=== PATIENT | female | born 1935 | race Caucasian/White ===

== ENCOUNTER 2016-09-04 07:25 | Inpatient (IN) | payer OTHER ==
[2016-08-03 11:04] VITALS: BMI 36.0
--- NOTE | 2016-08-03 11:39 | PAT Medication Instructions ---
Service Date Aug 03, 2016. Current Home Medication List Albuterol Sulfate (Proair Respiclick), 2 PUFFS INH BID PRN for RN Alprazolam (Xanax), 0.5 MG PO DAILY PRN for RN Aspirin (Aspirin Ec), 81 MG PO QAM Hydrochlorothiazide (Hctz), 25 MG PO DAILY PRN for SWELLING Levothyroxine Sodium (Levothyroxine Sodium), 1 TAB PO QAM Lisinopril (Zestril), 40 MG PO BID Magnesium Oxide (Mag-Ox), 400 MG PO BID Metformin Hcl (Glucophage), 500 MG PO BID Montelukast Sodium (Montelukast Sodium), 1 TAB PO HS Omeprazole (Prilosec), 40 MG PO QAM Tramadol (Ultram), 50 MG PO Q6H PRN for RN [Maurizio Reds], 1 TAB PO QAM [Verapamil], 360 MG PO QPM [Vitamin D2], 50,000 UNITS PO MONTHLY Medication Instructions For Your Scheduled Surgery -Continue as directed: [Vitamin D2], 50,000 UNITS PO MONTHLY - Hold the following medications 2 weeks prior to surgery: [Maurizio Reds], 1 TAB PO QAM - Hold the following medications 48 hours prior to surgery: Metformin Hcl (Glucophage), 500 MG PO BID - Hold the following medications 24 hours prior to surgery: Lisinopril (Zestril), 40 MG PO BID - Hold the following medications the morning of surgery: Hydrochlorothiazide (Hctz), 25 MG PO DAILY PRN for SWELLING Magnesium Oxide (Mag-Ox), 400 MG PO BID - Take the following medications the morning of surgery with a sip of water OTHERWISE NOTHING TO EAT OR DRINK AFTER MIDNIGHT: Omeprazole (Prilosec), 40 MG PO QAM Aspirin (Aspirin Ec), 81 MG PO QAM Albuterol Sulfate (Proair Respiclick), 2 PUFFS INH BID PRN (use if needed; BRING TO HOSPITAL) Alprazolam (Xanax), 0.5 MG PO DAILY PRN Levothyroxine Sodium (Levothyroxine Sodium), 1 TAB PO QAM Tramadol (Ultram), 50 MG PO Q6H PRN (may take up to 4 hours prior to surgery if needed) - Take the following medications as scheduled the night before surgery: Albuterol Sulfate (Proair Respiclick), 2 PUFFS INH BID PRN for RN Alprazolam (Xanax), 0.5 MG PO DAILY PRN [Verapamil], 360 MG PO QPM Magnesium Oxide (Mag-Ox), 400 MG PO BID Montelukast Sodium (Montelukast Sodium), 1 TAB PO HS Tramadol (Ultram), 50 MG PO Q6H PRN If you have any questions please call us at [phone] (Chasidy Hernandez PA-C ) or [phone] or [phone]
[2016-08-03 12:01] LABS: COMPLETE YES; EOS % 1.7 %; HEMATOCRIT 35.2 % (37-47); IG% 0.8 %; LYMPH % 19.8 %; LYMPH ABS # 1.17 K/uL (1.2-3.4); MEAN CELL VOLUME 75.1 fL (80-100); MEAN CORPUSCULAR HEMOGLOBIN 24.1 pg (25-34); MEAN CORPUSCULAR HGB CONC 32.1 g/dl (32-36); MEAN PLATELET VOLUME 9.8 fL (7.4-10.4); MONO % 8.1 %; NEUT % 69.6 %; PLATELET COUNT 124 K/uL (130-400); RED BLOOD COUNT 4.69 M/uL (4.2-5.4)
[2016-08-03 12:16] LABS: PROTHROMBIN TIME (PATIENT) 11.2 SECONDS (9.0-12.0)
[2016-08-03 12:22] LABS: ESTIMATED AVERAGE GLUCOSE 128 mg/dl; HA1C FLAG Normal (Normal)
[2016-08-03 12:25] LABS: BUN/CREATININE RATIO 19.2 (10-20); CALCIUM 9.1 mg/dl (8.5-10.1); CREATININE 1.1 mg/dl (0.60-1.20)
[2016-08-03 12:28] LABS: URINE APPEARANCE CLEAR (CLEAR); URINE BILIRUBIN NEG (NEG); URINE COLOR YELLOW; URINE EPITHELIAL CELL AUTO >30 /lpf (0-5); URINE NITRITE NEG (NEG); URINE SPECIFIC GRAVITY 1.024 (1.000-1.030); UROBILINOGEN NEG (NEG); ZZUR CULT IF INDIC CLEAN CATCH NO
--- NOTE | 2016-08-03 12:29 | DIAGNOSTIC IMAGING REPORT ---
CHEST 2 VIEWS ROUTINE HISTORY: Preop. COMPARISON: None. FINDINGS: The lungs are clear. Cardiac silhouette is normal in size. No pleural effusions. No pneumothorax. Old, healed left-sided rib fractures. IMPRESSION: No acute process. Electronically signed by: Raffi Hatch M.D. 08/03/2016 12:27 PM
[2016-08-03 12:33] LABS: MANUAL MICROSCOPIC REQUIRED? NO; REVIEW REQ? NO
--- NOTE | 2016-08-31 09:05 | HISTORY & PHYSICAL EXAMINATION ---
DATE OF ADMISSION: 09/04/2016 CHIEF COMPLAINT: Left knee pain. HISTORY OF PRESENT ILLNESS: Sridevi is an 81-year-old female with a 20-year history of pain in her left knee. She rates her pain a 10/10. She has pain with her daily activities. She has limited standing and walking tolerance range. Pain is worse with weightbearing. She has had injections and tramadol without relief. She has failed conservative treatment and is scheduled for left knee replacement. PAST MEDICAL HISTORY: Hypertension, diabetes, asthma, hypercholesterolemia, sleep apnea and diabetes. She denies heart disease or DVT. PAST SURGICAL HISTORY: Hysterectomy, appendectomy, surgical hernia repair, , bowel resection, laminectomy. SOCIAL HISTORY: The patient denies alcohol or tobacco use. She lives in a single story home. She is and retired. FAMILY HISTORY: Negative for DVT. MEDICATIONS: Lisinopril 40 mg b.i.d., levothyroxine 200 mcg daily, magnesium oxide 400 mg, omeprazole 40 mg, metformin 500 mg b.i.d., alprazolam 0.5 mg daily, montelukast 10 mg daily, tramadol 50 mg q. 6 hours, verapamil 360 mg, hydrochlorothiazide 25 mg p.r.n., Maurizio Red, vitamin D3 2,000 international units daily, Mihai aspirin 81 mg. ALLERGIES: STATINS. REVIEW OF SYSTEMS: See HPI. Ten other systems reviewed, all negative. PHYSICAL EXAMINATION: VITAL SIGNS: Height 5 foot 2 inches, weight 200 pounds, BMI 37. GENERAL: This is a well-developed, well-nourished female who is alert and oriented x3. Mood and affect are appropriate. HEENT: Normocephalic, atraumatic. Mucous membranes are moist and intact. NECK: Supple without lymphadenopathy. HEART: Regular rate and rhythm without murmurs, rubs or gallops. LUNGS: Clear to auscultation without wheezes or rhonchi. ABDOMEN: Soft and nontender. She does have and abdominal mass in the right lower quadrant, which is nontender. So far, her workup has been negative. EXTREMITIES: No ecchymosis, redness or warmth. She has varus deformity. Range of motion is from 0-115 degrees with no laxity. She is neurovascularly intact with +5/5 strength. X-RAY EXAMINATION: AP and lateral views show joint space narrowing and osteophyte formation. IMPRESSION: Degenerative joint disease left knee. PLAN: The patient will be admitted for a left total knee arthroplasty. We will plan on aspirin for DVT prophylaxis. The patient has [facility] insurance and will likely use home physical therapy.
[2016-09-04] VITALS (8 sets, daily range): BP systolic 130–152; BP diastolic 66–84; PULSE 75–103; TEMP 36.4–37.3; O2SAT 93–98; Ht 157.5 cm; Wt 90.0 kg
[~2016-09-04] VITALS: Ht 157.5 cm; Wt 90.0 kg
[2016-09-04] MEDS: TRANEXAMIC ACID INJ 1,000 MG in SODIUM CHLORIDE 0.9% 100ML 100 ML IV SCH ×2 (06:30→08:33)
[~2016-09-04 07:25] MED LIST: ACETAMINOPHEN 500 MG TAB PO SCH; ALBU18002 INH; ALPR-411 PO; ASPI81TA28 PO; BUPIVACAINE 0.25% 30 ML VIAL ONE; BUPIVACAINE 0.5 % 5 MG/1 ML PF 10ML VIAL ONE; CEFAZOLIN 2000 MG/60 ML D5W 60 ML IV SCH; CeleBREX 200 MG CAP PO SCH; FAMOTIDINE 20 MG TAB PO SCH; GABAPENTIN 300 MG CAP PO SCH; GLC/500 PO; HYDR25TA4 PO; LACTATED RINGER'S 1000ML 1,000 ML IV SCH; LACTATED RINGER'S 1000ML IV SCH; LEVO200T6 PO; LISI40TA PO; MAGN400T6 PO; MEGA REDS PO; METOCLOPRAMIDE HCL 10 MG TAB PO SCH; MONT1TAB5 PO; OMEP40CA PO; OXYCODONE HCL 10 MG TABCR (OXYCONTIN) PO SCH; POLYMYXIN B SULFATE 100,000 UNITS in NSS 100ML IR SCH; ROPIVACAINE 5MG/ML 30 ML 150 MG, BUPIVACAINE/EPINEPHR 0.5% MPF 30 ML, KETOROLAC TROMETH... INFIL SCH; TRAM-10 PO; VANCOMYCIN INJ 400 MG in NSS 100ML IR SCH; VERAPAMIL PO; VITAMIN D2 PO
--- NOTE | 2016-09-04 07:55 | History & Physical Bridge Note ---
H&P Re-Evaluation Bridge Note: I have examined the patient, reviewed the History & Physical and in the interval since the performance of the History & Physical I have noted the following changes of clinical significance: No changes noted
[2016-09-04] MEDS ORDERED: FENTANYL CITRATE INJ 50 MCG/1 ML 2 ML VIAL IV PRN (08:00)
[2016-09-04] MEDS ORDERED: ONDANSETRON INJ 2 MG/ML 2 ML VIAL IV PRN ×2 (08:00→10:30)
[2016-09-04] MEDS ORDERED: EpHEDrine SULFATE INJ 50 MG/ML AMP IV PRN (08:00)
[2016-09-04] MEDS ORDERED: ATROPINE SULFATE 0.1 MG/ML 5ML SYR IV PRN (08:00)
[2016-09-04] MEDS ORDERED: ORTHO JOINT ANESTHETIC ONE (08:10)
[2016-09-04] MEDS ORDERED: FENTANYL CITRATE INJ 50 MCG/1 ML 2 ML VIAL ONE (08:11)
[2016-09-04] MEDS ORDERED: MIDAZOLAM HCL 1 MG/ML 2ML VIAL ONE (08:12)
[2016-09-04] MEDS ORDERED: LIDOCAINE HCL 2% 2 ML VIAL (20MG/ML) ONE (09:41)
[2016-09-04] MEDS ORDERED: PROPOFOL IV EMULSION 10 MG/ML 20 ML VIAL IV ONE ×2 (09:41→10:36)
--- NOTE | 2016-09-04 10:27 | [facility] Post Operative Brief Note ---
Immediate Operative Summary Operative Date Sep 04, 2016. Pre-Operative Diagnosis Degenerative joint disease of left knee Post-Operative Diagnosis Same as preoperative diagnosis Procedure(s) Performed Left total knee arthroplasty Surgeon Dr Luiz Victor Lead Game Designer Surgeon(s) Raymundo Molina PA-C Estimated Blood Loss 50ML Findings DJD Specimens Left Knee bone and tissue Complication(s) None Disposition Recovery Room / PACU
[2016-09-04] MEDS ORDERED: BUPIVACAINE/EPINEPHRINE 0.25% 1:200,000 30 ML VIAL INJ ONE (10:28)
[2016-09-04] MEDS ORDERED: POVIDONE-IODINE OP SOLN 30 ML BTL TOP ONE (10:28)
[2016-09-04] MEDS ORDERED: BACITRACIN 50000 UNIT VIAL IR ONE (10:28)
[2016-09-04] MEDS ORDERED: KETOROLAC TROMETHAMINE 15 MG/ML VIAL IV. PRN (10:30)
[2016-09-04] MEDS ORDERED: BISACODYL 10 MG SUPP PR PRN (10:30)
[2016-09-04] MEDS ORDERED: SOD PHOSPHATE/SOD BIPHOSPHATE ENEMA 132 ML BTL PR PRN (10:30)
[2016-09-04] MEDS ORDERED: ALBUTEROL HFA INHALER 8.5 GM INH PRN (10:30)
[2016-09-04] MEDS ORDERED: HYDROCHLOROTHIAZIDE 25 MG TAB PO PRN (10:30)
[2016-09-04] MEDS ORDERED: ALPRAZOLAM 0.5 MG TAB PO PRN (10:30)
[2016-09-04] MEDS ORDERED: OXYCODONE HCL IR 5 MG TAB (IMMEDIATE RELEASE) PO PRN (10:30)
[2016-09-04] MEDS ORDERED: MoRPHine SULFATE 2 MG/ML CARP IV PRN (10:30)
[2016-09-04] MEDS ORDERED: MAGNESIUM HYDROXIDE SUSP 30 ML UDC PO PRN (10:30)
[2016-09-04] MEDS ORDERED: ZOLPIDEM TARTRATE 5 MG TAB PO PRN (10:30)
[2016-09-04] MEDS ORDERED: TRAMADOL HCL 50 MG TAB PO PRN (10:30)
[2016-09-04] MEDS ORDERED: METOCLOPRAMIDE HCL INJ 5 MG/ML 2 ML VIAL IV PRN (10:30)
[2016-09-04] MEDS ORDERED: DiphenhydrAMINE HCL 50 MG/ML VIAL IV PRN (10:30)
[2016-09-04] MEDS ORDERED: ALUMINUM/MAGNESIUM/SIMETH (MAALOX MAX) 30 ML UDC PO PRN (10:30)
--- NOTE | 2016-09-04 11:48 | Pharmacy Progress Note ---
Glycemic Control Intl Consult Date of Service Sep 04, 2016. Scope Glycemic Pharmacist consulted by Dr Victor on 09/04/16 for glycemic control and to write orders per [facility] inpatient glycemic control protocol Objective Weight (Kilograms): 90.00 Accuchecks BSG (last 24hrs): Test 09/04/16 07:53 09/04/16 11:14 Bedside Glucose 145 mg/dl (70-90) 134 mg/dl (70-90) Recent Pertinent Medications Outpatient Anti-diabetic Regimen: * Metformin 500 mg po BID * A1c = 6.1 % on 08/03/16 Risk Factors for Insulin Resistance: * Infection: Cefazolin pre- and post-op * Recent Surgery: L TKA 09/04, POD 0 * Diet: T2DM Assessment & Plan ASSESSMENT: * ADA & AACE recommend a goal blood sugar range 140-180 mg/dl for the majority of critically ill & non-critically ill patients. However, more stringent targets may be selected in individual cases. * OK to have lower goal range * 81 yo F with T2DM admitted for L TKA 09/04/16 * Patient with good outpatient control of BSG's based on A1c * No steroids administered. Will not give basal insulin at this time. May consider if BSG's trend up significantly. * Will start with slightly looser than weight-based correction factor and carb ratio 2nd unknown insulin sensitivity and lower HbA1c PLAN FOR INPATIENT GLYCEMIC CONTROL: * Hold outpatient oral diabetes medications * No basal insulin for now * Correctional Insulin with NOVOLOG per scale ACHS or Q6hrs while NPO * Goal Range: Low 120 mg/dL - High 150 mg/dL * Correction Factor: 30 mg/dL/unit * Nutritional / Prandial insulin per carb ratio of 1 unit per 10 grams CHO consumed * Please note that the plan above was derived based on current level of insulin resistance and hospital stress. These recommendations are appropriate for inpatient admission only. Plan of care upon discharge will need to be reassessed to avoid potential outpatient hypo/hyperglycemia. Thank you.
[2016-09-04] MEDS ORDERED: PHARMACY GLYCEMIC MGMT CONSULT PRN (11:50)
--- NOTE | 2016-09-04 11:55 | Anesthesiology Progress Note ---
Anesthesia Post Op Note Date & Time Sep 04, 2016 at 11:54 Vital Signs Pain Intensity: 0 Vital Signs Past 12 Hours Date Time Temp Pulse Resp B/P Pulse Ox O2 Delivery O2 Flow Rate FiO2 09/04/16 11:45 36.5 82 16 138/69 95 Nasal Cannula 2 09/04/16 11:35 81 16 113/77 95 Nasal Cannula 2 09/04/16 11:25 85 16 141/61 97 Nasal Cannula 2 09/04/16 11:16 83 16 137/62 96 Mask 10 09/04/16 11:09 37.0 86 16 141/68 98 Mask 10 09/04/16 07:52 36.4 103 18 145/84 98 Room Air Notes Mental Status: alert / awake / arousable, participated in evaluation Pt Amnestic to Procedure: Yes Nausea / Vomiting: adequately controlled Pain: adequately controlled Airway Patency, RR, SpO2: stable & adequate BP & HR: stable & adequate Hydration State: stable & adequate Neuraxial Anesthesia: was administered, sensory block is resolving Anesthetic Complications: no major complications apparent
--- NOTE | 2016-09-04 11:59 | DIAGNOSTIC IMAGING REPORT ---
LEFT KNEE 1 OR 2 VIEWS ROUTINE CLINICAL HISTORY: Degenerative arthritis COMPARISON: None. DISCUSSION: There are postsurgical changes of a total left knee arthroplasty and patellar resurfacing. The femoral and tibial components appear well seated. There is an overlying surgical drain. There is air in soft tissues consistent with history of recent surgery. IMPRESSION: Postsurgical changes of a total left knee arthroplasty. Electronically signed by: Trever Jacques M.D. 09/04/2016 11:57 AM Dictated Date/Time: 09/04/2016 11:56 AM
[2016-09-04] MEDS: SODIUM CHLORIDE 0.9% 1000ML 1,000 ML IV SCH ×2 (12:39→20:44)
[2016-09-04] MEDS: ACETAMINOPHEN 500 MG TAB PO SCH ×2 (14:13→22:17)
[2016-09-04] MEDS ORDERED: TRANEXAMIC ACID INJ 1,000 MG in SODIUM CHLORIDE 0.9% 100ML 100 ML IV SCH (17:00)
--- NOTE | 2016-09-04 18:00 | OPERATIVE REPORT ---
DATE OF OPERATION: 09/04/2016 PREOPERATIVE DIAGNOSIS: Degenerative arthritis, left knee. POSTOPERATIVE DIAGNOSIS: Same. PROCEDURE: Left total knee with patient matched implant. SURGEON: Dr. Victor. REFUND SPECIALIST: SAVAGE Villar. ANESTHESIA: Spinal. BLOOD LOSS: 50 mL. REPLACEMENT FLUIDS: 1400 mL crystalloid. DRAINS: Hemovac x2. CULTURES: None. COMPLICATIONS: None. COMPONENTS USED: B[employer] Nephew Jourmullen Knee System: Femur size 5, tibia size 3 x 9, patella size 35. NOTE: Raymundo Molina was present and assisted throughout due to the complicated nature of this case. He helped with preparation and set up, first assisted throughout, and personally closed the capsule, subcutaneous and skin layers and applied the postoperative dressing. DESCRIPTION OF PROCEDURE: Following satisfactory spinal, the patient was supine. A tourniquet was placed but not inflated. The lower extremity was prepared with ChloraPrep and draped sterilely. Following a surgical time-out, a midline incision was made with a trivector approach. The knee showed grade 4 changes most marked in the medial and patellofemoral compartments. The cruciate ligaments were excised. The patient matched femoral block was applied. Femoral distal rotation and resection were set and completed. The 4-in-1 block was used to finish preparation of the femur. The patient matched tibial block was applied. Tibial resection was completed. The patella was freehand cut. Soft tissue balancing was completed and a trial reduction showed good tensioning stability on the collateral ligaments, stable range of motion, and the patella tracked well. The trial components were removed. The capsule was prepared with the orthopedic cocktail and after irrigation, the components were cemented using Simplex G cement. A Betadine soak was performed. When the cement had hardened, the Betadine was irrigated. Two drains were placed. The arthrotomy was closed with a running suture of 0 V-Loc and reinforced with #1 Vicryl. The subcutaneous tissues with 2-0 Vicryl and the skin with a running subcuticular stitch of 3-0 V-Loc. Dermabond and dry dressing were applied. The patient was returned to her bed in stable condition. I attest to the content of the Intraoperative Record and any orders documented therein. Any exceptio ns are noted below.
[2016-09-04] MEDS: CEFAZOLIN IV 2,000 MG in DEXTROSE 5% 50ML 50 ML IV SCH (18:14)
[2016-09-04] MEDS: INSULIN ASPART 100 UNITS/ML 3 ML PEN SC SCH ×2 (18:21→20:48)
[2016-09-04] MEDS: OXYCODONE HCL 10 MG TABCR (OXYCONTIN) PO SCH (20:44)
[2016-09-04] MEDS: MAGNESIUM OXIDE 400 MG TAB PO SCH (20:44)
[2016-09-04] MEDS: ASPIRIN 81 MG ECTAB PO SCH (20:44)
[2016-09-04] MEDS: LISINOPRIL 40 MG TAB PO SCH (20:45)
[2016-09-04] MEDS ORDERED: MONTELUKAST SOD 10 MG TAB PO SCH (21:00)
[2016-09-04] MEDS ORDERED: VERAPAMIL HCL 180 MG TABCR PO SCH (21:00)
[2016-09-04] MEDS ORDERED: SENNA 8.6 MG TAB PO SCH (21:00)
[2016-09-05] MEDS: CEFAZOLIN IV 2,000 MG in DEXTROSE 5% 50ML 50 ML IV SCH (01:37)
[2016-09-05] MEDS: ACETAMINOPHEN 500 MG TAB PO SCH ×2 (05:32→13:40)
[2016-09-05] MEDS: SODIUM CHLORIDE 0.9% 1000ML 1,000 ML IV SCH (05:36)
[2016-09-05 06:00] LABS: HEMATOCRIT 28.9 % (37-47); MEAN CELL VOLUME 76.3 fL (80-100); MEAN CORPUSCULAR HEMOGLOBIN 24.5 pg (25-34); MEAN CORPUSCULAR HGB CONC 32.2 g/dl (32-36); MEAN PLATELET VOLUME 11.3 fL (7.4-10.4); PLATELET COUNT 116 K/uL (130-400); RED BLOOD COUNT 3.79 M/uL (4.2-5.4); WHITE BLOOD COUNT 5.67 K/uL (4.8-10.8)
[2016-09-05] MEDS ORDERED: LEVOTHYROXINE 200 MCG TAB PO SCH (06:00)
[2016-09-05 06:35] LABS: BUN/CREATININE RATIO 21.3 (10-20); CALCIUM 8.1 mg/dl (8.5-10.1); CREATININE 1.2 mg/dl (0.60-1.20); POTASSIUM 4.2 mmol/L (3.5-5.1)
[2016-09-05 07:19] VITALS: BP 122/77; PULSE 74; TEMP 36.4; O2SAT 95
--- NOTE | 2016-09-05 08:08 | Anesthesiology Progress Note ---
Anesthesia Post Op Note Date & Time Sep 05, 2016 at 08:07 Vital Signs Vital Signs Past 12 Hours Date Time Temp Pulse Resp B/P Pulse Ox O2 Delivery O2 Flow Rate FiO2 09/05/16 08:00 Room Air 09/05/16 07:19 36.4 74 16 122/77 95 Room Air 09/04/16 23:45 Room Air 09/04/16 23:16 36.6 76 20 147/78 95 Room Air Notes Mental Status: alert / awake / arousable, participated in evaluation Pt Amnestic to Procedure: Yes Nausea / Vomiting: adequately controlled Pain: adequately controlled Airway Patency, RR, SpO2: stable & adequate BP & HR: stable & adequate Hydration State: stable & adequate Neuraxial Anesthesia: was administered, sensory block resolved Anesthetic Complications: no major complications apparent
--- NOTE | 2016-09-05 08:22 | Orthopedic Progress Note ---
Orthopedic Progress Note Date of Service Sep 05, 2016. Subjective Post OP Day: 1 Reports: feeling well, Denies: SOB, calf pain, chest pain, light headedness, nausea / vomiting Objective calves soft nontender, N/V intact, dressing C/D/I, A&O x3, toes mobile, hemovac drainage (280/80CC SHIFT) Date Time Temp Pulse Resp B/P Pulse Ox O2 Delivery O2 Flow Rate FiO2 09/05/16 08:00 Room Air 09/05/16 07:19 36.4 74 16 122/77 95 Room Air 09/04/16 23:45 Room Air 09/04/16 23:16 36.6 76 20 147/78 95 Room Air 09/04/16 19:33 36.6 78 18 135/75 95 Room Air 09/04/16 15:15 Room Air 09/04/16 15:00 36.6 80 16 130/79 93 Room Air 09/04/16 13:59 36.5 81 18 130/80 96 Nasal Cannula 2.0 09/04/16 13:00 75 16 146/82 98 Nasal Cannula 2.0 09/04/16 12:45 Room Air 09/04/16 12:30 36.8 79 16 152/76 98 Nasal Cannula 2.0 09/04/16 12:00 Nasal Cannula 2.0 09/04/16 12:00 95 Nasal Cannula 09/04/16 12:00 37.3 83 14 143/66 95 Nasal Cannula 2.0 09/04/16 11:45 36.5 82 16 138/69 95 Nasal Cannula 2 09/04/16 11:35 81 16 113/77 95 Nasal Cannula 2 09/04/16 11:25 85 16 141/61 97 Nasal Cannula 2 09/04/16 11:16 83 16 137/62 96 Mask 10 09/04/16 11:09 37.0 86 16 141/68 98 Mask 10 Laboratory Results 24 Hours: Test 09/05/16 05:22 Hematocrit 28.9 % Hemoglobin 9.3 g/dL Assessment & Plan Assessment: POD#1 SP LEFT TKA Inhouse Planning Pain Management: Celebrex, Oxycontin, PO Tylenol, Oxy IR DVT Prophylaxis: TEDs, SCDs, ASA Discharge Planning Discharge Planning: home with home health ([facility] LAT[facility] TODAY WITH ADVANTAGE)
[2016-09-05] MEDS: MAGNESIUM OXIDE 400 MG TAB PO SCH (08:34)
[2016-09-05] MEDS: ASPIRIN 81 MG ECTAB PO SCH (08:34)
[2016-09-05] MEDS: OXYCODONE HCL 10 MG TABCR (OXYCONTIN) PO SCH (08:35)
[2016-09-05] MEDS: LISINOPRIL 40 MG TAB PO SCH (08:36)
[2016-09-05] MEDS ORDERED: PANTOprazole SOD 40 MG TAB PO SCH (09:00)
[2016-09-05] MEDS ORDERED: MULTIVITAMIN TAB PO SCH (09:00)
[2016-09-05] MEDS: INSULIN ASPART 100 UNITS/ML 3 ML PEN SC SCH ×2 (09:09→13:03)
[2016-09-05 11:18] VITALS: BP 158/83; PULSE 73; TEMP 36.5; O2SAT 97
--- NOTE | 2016-09-05 11:53 | Discharge Instructions ---
Discharge Instructions Admission Reason for Admission: Left Knee Degenerative Arthritis Discharge Discharge Diagnosis / Problem: sp left TKA Discharge Goals Goal(s): Decrease discomfort, Improve function, Increase independence Activity Recommendations Activity Limitations: per Instructions/Follow-up section . Instructions / Follow-Up Instructions / Follow-Up ACTIVITY RECOMMENDATIONS: SELF CARE INSTRUCTIONS AFTER TOTAL KNEE REPLACEMENT A. You may need to continue a physical therapy program after discharge from the hospital. There are several options available to you. Your doctor will assist you in selecting the best one for you. 1. An out-patient facility 2 to 3 times a week for therapy or home therapy. 2. Continue working on all exercises taught to you in the hospital. Your goals should be to increase bending of your knee to 90 degrees and beyond and to fully straighten your knee. B. You may progress at your own pace from walking with a walker or crutches to a cane; then to no assistive devices. C. Make walking a part of your daily routine. Be up as much as comfortable with rest periods throughout the day. Rest with leg elevation is very important. Use the ice wrap frequently for the first 3-4 weeks. D. There are no restrictions on activities. You may ride in a car, shop, participate in ship rigger apprentice and all social activities. E. Wear the long elastic stockings (SUSAN hose) 20 hours a day for 2 weeks after surgery. They can be removed several times a day for laundering and for a bath. F. You may shower, no tub baths until cleared by your doctor. SPECIAL CARE INSTRUCTIONS: VERY IMPORTANT TO READ AND REVIEW A. There are a few signs you need to watch for after you are home. Call [facility] if you notice any of the followin. Increased severe knee pain. Some pain is expected especially when you exercise. 2. Increased swelling in your leg or knee; pain or swelling of the calf muscle in either lower leg. 3. Any fluid drainage from the incision. 4. Shortness of breath or chest pain. B. Please call [facility] at if you have any concerns or questions about your operation or recovery. The doctor or his nurse will return your call promptly. C. You must take antibiotics before dental work, bladder, bowel or other surgery. Your doctor will provide you with a permanent care to carry describing this precaution. IMPORTANT: * REMEMBER TO TAKE ASPIRIN, 81 MG, TWICE DAILY FOR 4 WEEKS UNLESS OTHERWISE DIRECTED. THIS IS YOUR BLOOD THINNER. * HIGH RISK PATIENTS MAY BE PRESCRIBED A STRONGER BLOOD THINNER. THIS WILL BE PROVIDED AT DISCHARGE. * CALL IF INCREASED PAIN, REDNESS, DRAINAGE OR FEVER GREATER THAT 101. * WEAR SUSAN HOSE 20 HOURS PER DAY FOR 2 WEEKS. DERMABOND Prineo- This is a mesh tape dressing that is covered with glue. It should remain in place until the incision is properly healed, usually 10-14 days. This dressing is designed to naturally slough off. You may trim the excess mesh tape as it peels off. Incision may be briefly wet in a shower. Dry immediately by blotting with a clean, dry towel. Do not bath or swim until instructed by your doctor. Do not scratch, rub, or pick at the dressing. Do not apply any topical ointments or lotions until dressing is completely removed and/or instructed by your doctor. There may be a small piece of suture material at one end of your incision. Do not pull or trim this. If it is bothersome or catching on clothing, you may cover it with a band-aid. FOLLOW UP VISIT: If appointment is not already scheduled: Please call [facility] to make a follow-up appointment for 2 weeks after your surgery at . Current Hospital Diet Patient's current hospital diet: Diabetes Type 2 Diet Discharge Diet Recommended Diet: Regular Diet Procedures Procedures Performed: Left total knee arthroplasty Pending Studies Studies pending at discharge: no Laboratory Results Hemoglobin A1c Test 08/03/16 11:43 Range/Units Estimated Average Glucose 128 mg/dl Hemoglobin A1c 6.1 H 4.5-5.6 % Medical Emergencies . Who to Call and When: Medical Emergencies: If at any time you feel your situation is an emergency, please call 911 immediately. . Non-Emergent Contact Non-Emergency issues call your: Primary Care Provider . "Provider Documentation" section prepared by Yesika Michel. VTE Core Measure Inpt VTE Proph given/why not?: Other Anticoagulation, T.E.D. Stockings, SCD's
[2016-09-05] MEDS ORDERED: ACET-1138 PO (11:57)
[2016-09-05] MEDS ORDERED: MORP-157 PO (11:57)
[2016-09-05] MEDS ORDERED: ONDA8TAB6 PO (11:57)
[2016-09-05] MEDS ORDERED: ASPI81TA28 PO (11:57)
[2016-09-05] MEDS ORDERED: RXC5 PO (11:57)
[2016-09-05] MEDS ORDERED: CLB200 PO (11:57)
[2016-09-05] MEDS ORDERED: CeleBREX 200 MG CAP PO SCH (12:00)
[2016-09-05 12:12] VITALS: BP 158/83; PULSE 73; TEMP 36.5; O2SAT 97
--- NOTE | 2016-09-05 13:38 | Pharmacy Progress Note ---
Glycemic: Assessment & Plan Date of Service Sep 05, 2016. Assessment & Plan Assessment * BSG's ranging 96-150 mg/dL over the last 24 hours * BSG of 96 mg/dL at lunch today slightly too low - will eliminate carb coverage * OK to decrease goal range as patient will only receive insulin if BSG's are elevated * May restart metformin tomorrow Plan * Correctional Insulin: Novolog Correction per scale ACHS Decrease Goal Range: Low 100 mg/dL - High 140 mg/dL Correction Factor: 30 mg/dL/unit * Prandial insulin: Eliminate carb ratio * Oral agents: Continue to hold metformin for now - may resume 09/06 * Please note that the plan above was derived based on current level of insulin resistance and hospital stress. These recommendations are appropriate for inpatient admission only. Plan of care upon discharge will need to be reassessed to avoid potential outpatient hypo/hyperglycemia.
--- NOTE | 2016-09-11 16:17 | DISCHARGE SUMMARY ---
DISCHARGE DIAGNOSIS: Degenerative joint disease left knee. SECONDARY DIAGNOSES: Hypertension, diabetes mellitus, asthma, hypercholesterolemia, sleep apnea. CONSULTS: None. COMPLICATIONS: None. PROCEDURES: Left total knee arthroplasty performed by Dr. Jose Manuel Victor on 09/04/2016. BRIEF HISTORY: As dictated in history and physical. HOSPITAL SUMMARY: The patient was admitted on the above date and had the above-noted surgery performed, which he tolerated well. On the first postoperative day, the patient was feeling well and had no complaints. Calves were soft and nontender, neurovascularly intact. Dressings clean, dry and intact. Toes were mobile. Pain was controlled and vital signs were stable and she was afebrile. Hemoglobin was 9.3 and she was started on physical therapy protocol and continued on DVT prophylaxis and pain management. She progressed well with her physical therapy, continued to remain stable and it was felt she could be discharged to home on 09/05/2016. For further review, please see chart. LAB AND X-RAY DATA: As per chart. DISCHARGE INSTRUCTIONS: The patient was discharged to home in satisfactory condition on 09/05/2016. DIET: Diabetic. ACTIVITY: Follow TKA instruction sheets and special care instructions as noted. Follow up with Dr. Jose Manuel Victor in 2 weeks. The patient to call for appointment if one has not been made for you. DISCHARGE MEDICATIONS: Acetaminophen 1000 mg p.o. q. 8 hours, Celebrex 200 mg p.o. daily, morphine sulfate 15 mg p.o. q. 12 hours, Zofran 8 mg p.o. q. 8 hours p.r.n., oxycodone 5-10 mg p.o. q. 4 hours p.r.n., aspirin 81 mg p.o. b.i.d., after 30 days resume once daily dosing. Resume home meds as listed.
== END 2016-09-05 13:53 | disposition home health service (06) | DRG 470 ==
LOC: ENRESERVTM → ENRESERVDT → C.ACU 07:25 → C.3E 08:22
PROVIDERS: ADMIT Orthopaedic Surgery; ATTEND Orthopaedic Surgery
PROC: 0SRD0J9 Replacement of Left Knee Joint with Synthetic Substitute, Cemented, Open Approach (ICD-10-PCS; principal; 2016-09-04 08:45)
DX: M17.12 Unilateral primary osteoarthritis, left knee (principal); I10 Essential (primary) hypertension; E11.42 Type 2 diabetes mellitus with diabetic polyneuropathy; J45.909 Unspecified asthma, uncomplicated; I73.9 Peripheral vascular disease, unspecified; I35.0 Nonrheumatic aortic (valve) stenosis; E03.9 Hypothyroidism, unspecified; G47.30 Sleep apnea, unspecified; F41.9 Anxiety disorder, unspecified; F32.9 Major depressive disorder, single episode, unspecified; E66.9 Obesity, unspecified; Z68.36 Body mass index [BMI] 36.0-36.9, adult; Z99.89 Dependence on other enabling machines and devices; Z79.82 Long term (current) use of aspirin; Z79.84 Long term (current) use of oral hypoglycemic drugs; Z79.891 Long term (current) use of opiate analgesic; Z79.899 Other long term (current) drug therapy